=== PATIENT | male | born 1950 | race Caucasian/White ===

== ENCOUNTER 2017-04-03 19:52 | Observation (INO) ==
[2017-04-03] MEDS ORDERED: ASPIRIN PO STA (19:56)
[2017-04-03 20:24] LABS: MANUAL DIFF NEEDED? NO
[2017-04-03 20:30] LABS: BASO% 0.6 % (0.0-0.8); EOS# 0.17 X1000 (0.0-0.7); EOS% 2.4 % (0.0-10.0); HEMATOCRIT 48.1 % (42.0-52.0); HEMOGLOBIN 16.6 g/dL (14.0-18.0); IMM GRAN# 0.04 X1000 (0.0-0.04); IMM GRAN% 0.6 % (0.0-0.5); LYMPH# 2.43 X1000 (1.2-3.4); LYMPH% 33.7 % (20.5-51.1); MCH 32.2 PG (27-31); MCHC 34.5 g/dL (33-37); MCV 93.4 FL (81-99); MONO# 0.87 X1000 (0.11-0.59); MPV 10.6 FL (7.4-10.4); NEUT% 50.7 % (42.2-75.2); PLT 175 X1000 (130-400); RBC 5.15 XMIL (4.7-6.1)
[2017-04-03 20:38] LABS: PROTIME 10.5 Seconds (9.2-11.7); PTT 25.9 Seconds (22.0-36.0)
[2017-04-03 20:46] LABS: ALBUMIN 5.1 g/dL (3.5-5.0); CALCIUM 10.2 mg/dL (8.8-10.2); MAGNESIUM 2.1 mg/dL (1.5-2.7); POTASSIUM 4.8 mmol/L (3.5-5.1); TOTAL BILIRUBIN 0.5 mg/dL (0.20-1.00); TOTAL PROTEIN 7.9 g/dL (6.3-8.3)
--- NOTE | 2017-04-03 20:47 | Diag Imaging Result Doc PS360 ---
EXAM: CHEST-2 VIEWS INDICATION: CP TECHNIQUE: 2 views COMPARISON: None. FINDINGS: There appears to be a calcified granuloma projecting of the posterior lung bases on the lateral view. The lungs are grossly clear, otherwise. There is no discrete pleural fluid collection or pneumothorax. There are median sternotomy wires and multiple pericardial clips. The cardiomediastinal silhouette and central vasculature are grossly unremarkable, otherwise. IMPRESSION: No evidence of acute pathology by plain radiograph. Electronically signed by Brando Zavala 04/03/2017 8:45 PM
--- NOTE | 2017-04-03 20:57 | PROVIDER DOCUMENTATION ---
This chart was entered by Mia Magdaleno Scribe, acting as scribe for Zach Dueñas MD. HPI-Chest Pain - General Chief Complaint: Chest Pain Stated Complaint: TIGHT CHEST,SOB Time Seen by Provider: 04/03/17 20:10 Source: patient Allergies/Adverse Reactions: Patient Allergies Allergy/AdvReac Type Severity Reaction Status Date / Time No Known Allergies Allergy Verified 04/03/17 20:20 Home Medications: Home Medication List Medication Instructions Recorded Confirmed Last Taken Type Aspirin 325 mg PO QHS 05/11/12 04/03/17 04/03/17 History Clopidogrel [Plavix] 75 mg PO DAILY 05/11/12 04/03/17 04/02/17 History Glipizide/Metformin HCl 2 each PO BID 05/11/12 04/03/17 04/03/17 History [Glipizide-Metformin 5-500 mg] [place]-3 Fatty Acids/Fish Oil [Fish 1 each PO DAILY 05/11/12 04/03/17 04/03/17 History Oil 1,200 mg Softgel] Sitagliptin [Januvia] 100 mg PO DAILY 05/11/12 04/03/17 04/03/17 History Atorvastatin Calcium [Lipitor] 40 mg PO QHS 04/03/17 04/03/17 04/02/17 History Dapagliflozin Propanediol [Farxiga] 5 mg PO DAILY 04/03/17 04/03/17 04/03/17 History Lisinopril 5 mg PO DAILY 04/03/17 04/03/17 04/03/17 History - History of Present Illness-CP Nature of Presenting Problem: 67 Y/O M presents to ED with Chest Pain. Pt states that he began having heaviness in his substernal chest around 18:40 and while at [employer] began feeling flushed. 19:30 Nitro was taken. Hx of bypass surgery 5 stints. Pt states he takes a 325 aspirin daily and took one this morning and given 1 in ED. States diabetic, and tingling in her arms. Denies diaphoresis. Location: reports: substernal Chest Pain Radiation: reports: no radiation Quality of Pain: reports: other ("heaviness") Severity in ED: mild, moderate Onset/Duration: this evening Timing: still present Context/Activities at Onset: reports: none Associated Symptoms: denies: diaphoresis, dizziness, fever/chills, shortness of breath, syncope, vomiting, weakness Nitro Today/Relief: 0.4 mg x 1, provided at home Aspirin Treatment Today: 325 mg x 1, provided at home, provided by ED (325 given in ED) Review of Systems - Adult - REVIEW OF SYSTEMS - ADULT Constitutional: denies: chills, fever Eyes: reports: no symptoms reported Ears, Nose, Mouth & Throat: reports: no symptoms reported Cardiovascular: reports: chest pain Respiratory: denies: cough, shortness of breath Gastrointestinal: reports: no symptoms reported Genitourinary: reports: no symptoms reported Musculoskeletal: reports: no symptoms reported Integumentary: reports: no symptoms reported Neurological: reports: other (tingling in arms bilateral). denies: dizziness/ vertigo, headache/migraines Psychiatric: reports: no symptoms reported Endocrine: reports: no symptoms reported Hematologic/Lymphatic: reports: no symptoms reported Allergic/Immunologic: reports: no symptoms reported All Other Systems: Reviewed and Negative Past History - Adult - PAST MEDICAL HISTORY-ADULT Review of Records: reports: Old Records Reviewed, Nursing Assessment Review, Medications Reviewed, Social history reviewed & non-contributory. Major Childhood Illnesses: reports: denies history Cardiovascular: reports: CAD, hyperlipidemia Endocrine/Immune: reports: Diabetes - PRIOR SURGERIES/PROCEDURES Surgical/Procedure History: reports: back/neck - IMMUNIZATION STATUS Childhood Immunizations: See Nurse Assessment Flu Vaccine: See Nurse Assessment - SOCIAL HISTORY Smoking: non-smoker Substance Use: none/never Alcohol Use Frequency: never Living Situation: family Physical Exam-General - PHYSICAL EXAM-ADULT Initial Vital Signs Reviewed: Yes - CONSTITUTIONAL General Appearance: appears well, alert, no apparent distress - EYES Eyes: pink conjunctivae - HEAD, EARS, NOSE, MOUTH & THROAT HENMT: moist mucous membranes, normal ENT inspection, TMs normal, pharynx normal - NECK Neck: full range of motion, supple, normal inspection - RESPIRATORY Respiratory: lungs clear, normal breath sounds - CARDIOVASCULAR Cardiovascular: regular rate, rhythm - GASTROINTESTINAL (ABDOMEN) Abdominal Exam: non tender, soft - LYMPHATIC Lymphatic: no adenopathy - MUSCULOSKELETAL Back Exam: no CVA tenderness, no vertebral tenderness Extremity: non-tender, normal gait - SKIN Integumentary: normal color, normal turgor, warm/dry - NEUROLOGIC Neurologic: grossly normal - PSYCHIATRIC Psych/Mental Status: normal mood/affect, normal thought content, normal thought process, oriented x 3 Progress - PLAN OF CARE/RESULTS Progress/Plan/Lab Results: Vital Signs - 8 hr 04/03/17 20:07 Temperature 98.0 F Pulse Rate 56 L Respiratory Rate 18 Blood Pressure 169/90 O2 Sat by Pulse Oximetry 95 Laboratory Results - last 24 hr 04/03/17 04/03/17 04/03/17 20:05 20:05 20:05 WBC 7.22 RBC 5.15 Hgb 16.6 Hct 48.1 MCV 93.4 MCH 32.2 H MCHC 34.5 RDW Std Deviation 13.0 Plt Count 175 MPV 10.6 H Immature Gran % (Auto) 0.6 H Neut % (Auto) 50.7 Lymph % (Auto) 33.7 [place] % (Auto) 12.0 H Eos % (Auto) 2.4 Baso % (Auto) 0.6 Immature Gran # (Auto) 0.04 Neut # (Auto) 3.67 Lymph # (Auto) 2.43 [place] # (Auto) 0.87 H Eos # (Auto) 0.17 Baso # (Auto) 0.04 PT INR PTT (Actin FS) D-Dimer 0.26 Sodium 139 Potassium 4.8 Chloride 99 Carbon Dioxide 23 L Anion Gap 17 BUN 18 Creatinine 1.2 Estimated GFR/1.73 m2 60 BUN/Creatinine Ratio 15 Glucose 152 H Calculated Osmolality 282 Calcium 10.2 Magnesium 2.1 Total Bilirubin 0.50 AST 31 ALT 52 H Alkaline Phosphatase 66 Creatine Kinase 105 Troponin T Total Protein 7.9 Albumin 5.1 H Globulin 2.8 Albumin/Globulin Ratio 1.8 04/03/17 04/03/17 20:05 20:05 WBC RBC Hgb Hct MCV MCH MCHC RDW Std Deviation Plt Count MPV Immature Gran % (Auto) Neut % (Auto) Lymph % (Auto) [place] % (Auto) Eos % (Auto) Baso % (Auto) Immature Gran # (Auto) Neut # (Auto) Lymph # (Auto) [place] # (Auto) Eos # (Auto) Baso # (Auto) PT 10.5 INR 1.00 PTT (Actin FS) 25.9 D-Dimer Sodium Potassium Chloride Carbon Dioxide Anion Gap BUN Creatinine Estimated GFR/1.73 m2 BUN/Creatinine Ratio Glucose Calculated Osmolality Calcium Magnesium Total Bilirubin AST ALT Alkaline Phosphatase Creatine Kinase Troponin T < 0.010 Total Protein Albumin Globulin Albumin/Globulin Ratio Orders Category Date Time Status Cardiac Monitoring DIRECTED Care 04/03/17 19:56 Active CHEST-2 VIEWS [RAD] Stat Exams 04/03/17 19:56 Completed CBC WITH ELECTRONIC DIFF [HEME] Stat Lab 04/03/17 20:05 Completed CK PROFILE [SP CHEM] Stat Lab 04/03/17 20:05 Completed COMPREHENSIVE METABOLIC PANEL [CHEM] Stat Lab 04/03/17 20:05 Completed D-DIMER [CHEM] Stat Lab 04/03/17 20:05 Completed MAGNESIUM [CHEM] Stat Lab 04/03/17 20:05 Completed PRO B-NATRIURETIC PEPTIDE Stat Lab 04/03/17 20:05 Received PROTIME WITH INR [COAG] Stat Lab 04/03/17 20:05 Completed PTT [COAG] Stat Lab 04/03/17 20:05 Completed TROPONIN T Stat Lab 04/03/17 20:05 Completed Aspirin Med 04/03/17 19:56 Discontinued 325 mg PO STAT STA EKG [EKG] Stat Ther 04/03/17 19:56 Ordered EKG [EKG] Stat Ther 04/03/17 20:54 Ordered Result Diagrams: 04/03/17 20:05 04/03/17 20:05 - EKG 1 Time of EKG reading by physician:: 19:52 EKG Read and Signed by:: Zach Dueñas EKG Interpretation (*Must complete 3 of following elements*): Normal Rate: 54 Rhythm: Sinus Bradycardia with 1st degree AV block with premature atrial complexes [place]: right (incomplete) Prior EKG Comparison: unchanged from prior, changes noted, no prior EKG Comments: Borderline ECG 2 Time of EKG reading by physician:: 20:51 EKG Read and Signed by:: Zach Dueñas Rate: 53 QRS: RBB - CONSULTS/PCP/HOSPITALIST Notification #1 *Consult/PCP/Hospitalist*: Time Discussed: 20:48 Reason/Comments: Admit for Observation Consult Disposition: Admit (Admit Accepted) Departure - Departure Date of Disposition Decision: 04/03/17 Time of Disposition Decision: 20:58 DIAGNOSIS: Chest pain Qualifiers: Chest pain type: unspecified Qualified Code(s): R07.9 - Chest pain, unspecified Disposition: ADMITTED INPATIENT 09 Certified Medical Emergency: Emergent Condition: Stable Referrals and Follow-Ups: Will Salgado MD [Primary Care Provider] - - Critical Care Note This patient required my direct & personal management of CC.: Yes Attestation - Physician/ DAVID Attestation Patient care was provided by Advanced Practice Provider:: No The physician spent face to face time with patient:: Yes Advanced Practice Provider documentation review:: Supervising physician onsite and consulted in the evaluation and care of this patient. The physician did have a face to face encounter with the patient. This chart was documented by the indicated scribe, (Mia Magdaleno Scribe) and accurately reflects the services I performed and decisions made by me, Zach Dueñas MD, as attested by the provider's signature.
[2017-04-03] MEDS ORDERED: ZOFRAN IV PRN (22:47)
[2017-04-03] MEDS ORDERED: TYLENOL PO PRN (22:47)
[2017-04-03] MEDS ORDERED: NITROGLYCERIN SL PRN (22:47)
[2017-04-03] MEDS: LOVENOX SUBQ SCH (23:44)
--- NOTE | 2017-04-04 00:07 | HISTORY AND PHYSICAL ---
PRIMARY CARE PROVIDER: Dr. Will Salgado. TRENCH PIPE LAYER HELPER: Dr. Byrd. CHIEF COMPLAINT: Chest pain. HISTORY OF PRESENT ILLNESS: A 67-year-old male comes into the emergency room with chest pain that started substernal around 18:40 this afternoon while he was at [employer]. He began feeling flushed with tingling in his arms and his head. He stated the pain was more of a heaviness. He took a nitroglycerin. He denied any other associated symptoms such as diaphoresis, nausea, vomiting, shortness of breath, syncope, fever, chills, weakness, GI or complaint. He has a past medical history of coronary artery disease, hyperlipidemia, hypertension and diabetes mellitus type 2. He is status post coronary artery bypass grafting as well as multiple stenting. The patient believes 3 or 4 stents. Chest x-ray and laboratory data was obtained in the emergency room which were grossly normal. Patient CK and troponins are within normal limits but with his extensive cardiac history he will be placed on the medical floor in observation status with a cardiology consult. PAST MEDICAL HISTORY: 1. Coronary artery disease. 2. Hypertension. 3. Hyperlipidemia. 4. Diabetes mellitus. PAST SURGICAL HISTORY: 1. Cervical spine fusion. 2. CABG. 3. Cardiac stenting times 3-4. ALLERGIES: No known drug allergies. SOCIAL HISTORY: Lives at home with his . Denies tobacco, alcohol or illicit drug use or abuse. FAMILY HISTORY: Father at age 49 from a myocardial infarction. Mother recently from cancer. Does have siblings with diabetes mellitus. HOME MEDICATIONS: 1. Fish oil 1200 mg 1 p.o. daily. 2. Aspirin 325 p.o. at bedtime. 3. Januvia 100 mg p.o. daily. 4. Glipizide/metformin 5/500 two p.o. b.i.d. 5. Plavix 75 mg p.o. daily. 6. Farxiga 5 mg p.o. daily. 7. Lipitor 40 mg p.o. at bedtime. 8. Lisinopril 5 mg p.o. daily. REVIEW OF SYSTEMS: A 14 point review of systems conducted with the patient. Pertinent positives listed above in the HPI. All other systems reviewed and found to be negative. PHYSICAL EXAMINATION: VITAL SIGNS: Temperature 98 degrees, pulse 56, respirations 18, blood pressure 169/90, oxygen saturation 95% on room air. GENERAL: Very pleasant 67-year-old male lying in the ER stretcher. at bedside, very supportive. Answers all questions appropriately, in no acute distress. Chest pain has resolved. HEENT: Head is atraumatic, normocephalic. Pupils equal, round, reactive to light. Extraocular eye movement intact. Sclerae is anicteric. Conjunctivae is pink. Oral mucosa is moist. NECK: Supple. No JVD. No thyromegaly. Trachea is midline. No cervical lymphadenopathy. CARDIAC: S1-S2 appreciated. Regular rhythm. No murmurs, gallops, rubs. LUNGS: Clear to auscultation bilaterally. No rhonchi, wheezes or rales. Symmetrical rise and fall with respirations. ABDOMEN: Soft, nondistended, nontender. Bowel sounds present in all 4 quadrants. Normoactive. No pulsatile mass. No organomegaly. EXTREMITIES: No clubbing, cyanosis, or edema. 2+ pedal pulses. GENITOURINARY: The patient voids, otherwise deferred. NEUROLOGICAL: Alert and oriented x3. Cranial nerves 2-12 grossly intact. DIAGNOSTIC DATA: Chest x-ray, no acute disease. LABORATORY DATA: CBC within normal limits. Coags within normal limits. D- dimer 0.26. Sodium 139, potassium 4.8, chloride 99, carbon dioxide 23, BUN 18, creatinine 1.2, glucose 152. AST 31, ALT 52. CK 105. Troponin less than 0.010. ASSESSMENT AND PLAN: 1. Chest pain, rule out acute myocardial infarction. Echocardiogram was completed and I believe last month showed an ejection fraction of 45%. Dr. Byrd is his band edger. We will consult him. Continue aspirin and Plavix. Hold fish oil secondary to increased bleeding risk. 2. Hyperlipidemia. Continue statin. Check a direct lipid profile. 3. Diabetes mellitus type 2. Hold oral antihyperglycemics. Start sliding scale insulin with fingerstick blood sugar before meals and at bedtime. Treat if above 200. 4. Hypertension. Continue lisinopril. 5. Nonsymptomatic bradycardia. Dr. Byrd is apparently aware as he has stopped his metoprolol recently, according to the patient. Further recommendations per patient clinical course. Dictated by EMA Lucero for Boris Pickering MD Patient seen and examined. Patient reports start having chest pain in substernal area, more than pain it was chest tightness. Last time he experienced chest pain or something similar was 11 years ago approximately. Patient will be admitted to hospital. Cardiology will be consulted. He had a recent echo done one month ago where EF was 45%, similar to left heart cath done in [place] 11 years ago. Will continue with all his home meds. cc: EMA Lucero MD Stephen W. Harbin, MD William D. Denney, MD [facility] HOSPITALDaiana
--- NOTE | 2017-04-04 06:08 | EKG Report ---
Test Performed on : 04/04/2017 05:12:30 AM Test Reason : cp Blood Pressure : / mmHG Vent. Rate : 055 BPM Atrial Rate : 055 BPM P-R Int : 210 ms QRS Dur : 112 ms QT Int : 450 ms P-R-T Axes : 081 009 008 degrees QTc Int : 430 ms Sinus bradycardia. with marked sinus arrhythmia. with 1st degree AV block. Incomplete right bundle branch block Borderline ECG When compared with ECG of 03-APR-2017 19:52, (Unconfirmed) Nonspecific ST depression suggested in the inferior lead III premature atrial complexes. noted Confirmed by Star Nicholson DO ([id number]) on 04/07/2017 9:51:56 AM
--- NOTE | 2017-04-04 06:44 | EKG Report ---
Test Performed on : 04/03/2017 7:52:59 PM Test Reason : Chest Pain Blood Pressure : / mmHG Vent. Rate : 054 BPM Atrial Rate : 054 BPM P-R Int : 212 ms QRS Dur : 112 ms QT Int : 428 ms P-R-T Axes : 089 -02 030 degrees QTc Int : 405 ms Sinus bradycardia. with 1st degree AV block. with premature atrial complexes. Incomplete right bundle branch block Borderline ECG When compared with ECG of 03-MAR-2008 12:31, premature atrial complexes. are now present [place] interval has increased ST no longer depressed in Lateral leads T wave inversion no longer evident in Lateral leads Unconfirmed Result
[2017-04-04] MEDS: PRILOSEC PO SCH (06:51)
[2017-04-04] MEDS: HUMALOG SUBQ SCH ×4 (06:58→22:59)
[2017-04-04 07:02] LABS: MANUAL DIFF NEEDED? NO
[2017-04-04 07:05] LABS: BASO% 0.5 % (0.0-0.8); EOS# 0.14 X1000 (0.0-0.7); EOS% 2.5 % (0.0-10.0); HEMATOCRIT 43.7 % (42.0-52.0); HEMOGLOBIN 15.1 g/dL (14.0-18.0); IMM GRAN# 0.04 X1000 (0.0-0.04); IMM GRAN% 0.7 % (0.0-0.5); LYMPH# 1.83 X1000 (1.2-3.4); LYMPH% 32.9 % (20.5-51.1); MCH 32.3 PG (27-31); MCHC 34.6 g/dL (33-37); MCV 93.6 FL (81-99); MONO# 0.52 X1000 (0.11-0.59); MONO% 9.4 % (1.7-9.3); MPV 10.3 FL (7.4-10.4); PLT 138 X1000 (130-400); RBC 4.67 XMIL (4.7-6.1)
[2017-04-04 07:28] LABS: AGAP 13; BUN 15 mg/dL (8-22); CALCIUM 9.1 mg/dL (8.8-10.2); CHLORIDE 104 mmol/L (98-107); COSMO 286; POTASSIUM 4.2 mmol/L (3.5-5.1); SODIUM 142 mmol/L (136-145); TCO2 25 mmol/L (25-35)
[2017-04-04] MEDS ORDERED: NON-FORMULARY MED (Dapagliflozin Propanediol [Farxiga] 5 MG) PO SCH (09:00)
--- NOTE | 2017-04-04 11:39 | CONSULTATION ---
DATE OF CONSULTATION: 04/04/2017 INDICATION: Chest discomfort. HISTORY OF PRESENT ILLNESS: Mr. Padilla is a 67-year-old white male with a history of coronary disease and coronary bypass grafting who presented to the emergency room with discomfort in his chest that started around 6:30 year or so that evening while he was at [employer]. He began feeling somewhat flushed with some tingling in his arms and head and reports the pain as a somewhat heavy type feeling. This seems different than what he had previously with his coronary bypass. He took some nitroglycerin but noted that he did not use it sublingually he just swallowed it. He had no other associated symptoms such as shortness of breath, nausea, vomiting or diaphoresis. The symptoms lasted for anywhere from 30 minutes to an hour or so. He reports compliance with all his medications. He reports no other symptoms yesterday. He reports good oral intake over the last several days and no sick contacts. PAST MEDICAL HISTORY: 1. Significant for coronary disease with coronary bypass grafting. This was performed in 1992 with a MCCOLLUM to the LAD, a vein graft to the obtuse marginal and a vein graft to the RCA. His last catheterization was in 2007 and at that time he had a drug-eluting stent placed to the LAD as well as previous stents placed to a first diagonal and as well to the left anterior descending in 2007. 2. Ischemic cardiomyopathy with last ejection fraction around 45%. This was by echocardiogram that was checked March 15. His EF on that study was 45% with regional wall motion abnormalities showing severe hypokinesis to akinesis of the basal and mid inferior lateral wall of the left ventricle. 3. Bradycardia. Recently stopped off his beta chema as of March 13. 4. Hypertension. 5. Hyperlipidemia. 6. Diabetes. SOCIAL HISTORY: He is . His is present in the room today. No current tobacco. FAMILY HISTORY: Significant for hypertension. REVIEW OF SYSTEMS: Ten system review of systems is negative except for those things mentioned in HPI. PHYSICAL EXAMINATION: He is afebrile. His heart rates have been predominantly in the 40s to 50s. He had 1 documented at 8 o'clock of 151 however no telemetry to support this. I suspect that this is a typo. His blood pressure is 132/55.General: He is in no acute distress. HEENT: Oropharynx is moist. Normal dentition. Eye examination shows pink conjunctivae, white sclerae. Neck: Examination shows no obvious thyromegaly or thyroid tenderness. Cardiovascular: He is in a regular rate and rhythm. He has no obvious murmurs. He has no S3. He has no lower extremity edema. Chest: Clear bilaterally. No increased work of breathing. Abdomen: Soft, nontender, nondistended. He has no obvious organomegaly. Skin Exam: Warm and dry throughout without any rashes. Neurological: He is moving all extremities well. Cranial nerves 2-12 are intact without any sensation deficits. Psychiatric: Alert and oriented, pleasant. Normal mood and affect. PERTINENT DATA: His white count 5.5, hematocrit 43.7, his platelet count is 138,000. Sodium is 142, potassium 4.2, BUN 15, creatinine is 1. Cardiac enzymes are negative. His HDL is 33. His LDL is 70. He had a proBNP yesterday which was 64. ASSESSMENT: 1. Chest discomfort in a patient with a history of an ischemic cardiomyopathy. 2. Relative bradycardia. PLAN: We will proceed with myocardial perfusion imaging. If this is negative then we will likely have a discussion with his primary supervisor lime as well as possibly the EP service regarding implantation of a pacemaker. Notably he had his beta-chema discontinued on March 13 and he is presenting to the hospital today with complaints of some discomfort. He has had a previous myocardial infarction and would seem to warrant beta-chema usage given that history however it seems that his heart rate running in the 30s is somewhat problematic. We will address this after his myocardial perfusion scan. cc: MD Will Garrison MD
[2017-04-04] MEDS: PLAVIX PO SCH (17:19)
[2017-04-04] MEDS: PRINIVIL PO SCH (17:20)
[2017-04-04] MEDS ORDERED: ASPIRIN PO SCH (21:00)
[2017-04-04] MEDS ORDERED: LIPITOR PO SCH (21:00)
[2017-04-04] MEDS: LOVENOX SUBQ SCH (23:18)
[2017-04-05] MEDS ORDERED: LEXISCAN ONE (07:46)
--- NOTE | 2017-04-05 09:52 | PROGRESS NOTE ---
DATE: 04/05/2017 SUBJECTIVE: He is not having any chest pain this morning. He did not have any episodes of syncope. OBJECTIVE: Vital Signs: On physical examination, he is afebrile. His heart rates overnight were documented in the low 40s. Blood pressure 111/71. General: No acute distress. Cardiovascular: He is in a regular rate and rhythm. He has no murmurs, no S3, no lower extremity edema. Chest: Exam is clear bilaterally. No increased work of breathing. Abdomen: Soft, nontender, nondistended. No obvious organomegaly. PERTINENT DATA: He has no recent laboratory data this morning. His troponins yesterday were negative. ASSESSMENT: Chest discomfort. PLAN: Patient is completing his myocardial perfusion imaging this morning. If this is unremarkable, then I would likely have a discussion with the EP doctors about potentially implanting a pacemaker considering he is not on a beta-chema, has a reduced EF, and a previous NC with wall motion abnormalities noted on his most recent echo. We will follow up on the results of the tests. cc: MD Will Garrison MD
--- NOTE | 2017-04-05 10:25 | Diag Imaging Result Document ---
PROCEDURE NAME: MYOCARDIAL PERF SCAN, STR/REST - 04/04/2017 INDICATION: Chest pain. PROCEDURES PERFORMED: 1. Lexiscan stress. 2. One-day stress/rest myocardial perfusion imaging. PROCEDURE IN DETAIL: Mr. Padilla was brought to the nuclear laboratory and had a resting study with injection of 12.8 mCi of technetium-99m sestamibi with the usual imaging protocol utilized. He subsequently was brought back and had a Lexiscan stress. At peak stress, was injected with 30.9 mCi of technetium-99m sestamibi with usual imaging protocol utilized. FINDINGS: 1. Baseline EKG shows sinus rhythm. 2. Lexiscan stress did not demonstrate any clear evidence of ischemic-related EKG changes. Occasional PVCs were noted, but no obvious ischemic defects identified. PERFUSION IMAGING RESULTS: 1. No evidence of abnormal extracardiac uptake. 2. TID ratio 1.03. 3. Perfusion imaging demonstrates a large-sized defect located in the inferior apical, mid inferior, basal inferior mcmahon with some involvement of the inferior lateral segments. This defect is mild to moderate intensity on rest and worsens to a severe intensity defect at stress. This would suggest a baseline mild fixed defect with a moderate amount of reversibility overlying it suggesting the possibility of tom-infarct ischemia in the territory. 4. The ejection fraction is calculated to be 42%, end-diastolic volume 74 and end systolic volume 43. Inferior and inferolateral severe hypokinesis. cc: Agusto Nicholson MD [facility]
[2017-04-05] MEDS: PLAVIX PO SCH (10:40)
[2017-04-05] MEDS: HUMALOG SUBQ SCH ×2 (10:40→12:00)
[2017-04-05] MEDS: PRINIVIL PO SCH (10:41)
[2017-04-05] MEDS: PRILOSEC PO SCH (10:41)
[2017-04-05 12:29] VITALS: BP 122/55
[2017-04-05] MEDS ORDERED: ASPIRIN PO SCH (15:07)
[2017-04-05] MEDS ORDERED: LOTRISONE CREAM TOP SCH (21:00)
[2017-04-05] MEDS ORDERED: RANEXA PO SCH (21:00)
[2017-04-06] MEDS ORDERED: NORVASC PO SCH (09:00)
== END 2017-04-05 16:50 | disposition home or self-care (01) ==
LOC: 3N 19:52 → ED 19:52 → SUATTDRO 22:45
PROVIDERS: ADMIT Family Medicine; ATTEND Family Medicine